=== PATIENT | male | born 1945 | race Caucasian/White ===

== ENCOUNTER 2020-03-12 19:40 | Outpatient (REF) | payer MEDICARE, BC, SELFPAY ==
[2020-03-12 20:22] LABS: HCT 32.2 % (40.0-50.0); HGB 10.4 g/dL (13.5-17.5); MCH 31.5 pg (27.0-33.0); MCHC 32.3 % (32.0-36.0); MCV 97.6 fL (80-95); MPV 10.5 fL (8.0-11.0); RDW 14.5 % (11.8-14.1); RDW-SD 51.8 fL; Reticulocyte 1.7 % (0.5-2.4); WBC 8.91 10^3/uL (4.4-10.8)
[2020-03-12 20:34] LABS: Iron 83 ug/dL (65-175); Total Iron Binding Capacity 282 ug/dL (250-450); Transferrin Sat 29 % (20-55)
[2020-03-12 20:44] LABS: Anion Gap 3.5 mmol/L (3-11); BUN 21 mg/dL (7-18); CO2 34.5 mmol/L (21.0-32.0); CREATININE 1.29 mg/dL (0.70-1.30); Calcium 8.8 mg/dL (8.5-10.1); Chloride 101 mmol/L (98-107); Estimated GFR 54.44 (mL/min/1.73m2); Ferritin 107 ng/mL (26-388); Glucose 126 mg/dL (74-106); Platelet Count 91 10^3/uL (130-400); Potassium 4.4 mmol/L (3.5-5.1); Sodium 139 mmol/L (136-145)
== END 2020-03-12 20:00 ==
LOC: NCHCN 19:40
PROVIDERS: PCP Family Medicine; Visit Provider Internal Medicine
DX: D69.6 Thrombocytopenia, unspecified (principal); E11.9 Type 2 diabetes mellitus without complications; D64.9 Anemia, unspecified; I10 Essential (primary) hypertension; F10.21 Alcohol dependence, in remission
CPT/HCPCS: 80048; 85027; 82728; 83540; 83550; 85045

== ENCOUNTER 2020-07-16 19:33 | Outpatient (REF) | payer MEDICARE, BC, SELFPAY ==
[2020-07-16 20:45] LABS: HGB 10.3 g/dL (13.5-17.5); MCH 30.4 pg (27.0-33.0); MCHC 31.2 % (32.0-36.0); MCV 97.3 fL (80-95); MPV 10.3 fL (8.0-11.0); Platelet Count 92 10^3/uL (130-400); RBC 3.39 10^6/uL (4.36-5.78); RDW 16.3 % (11.8-14.1); RDW-SD 57.4 fL; WBC 11.05 10^3/uL (4.4-10.8)
[2020-07-16 21:00] LABS: ALT 32 U/L (16-63); AST 18 U/L (15-37); Albumin 3.4 g/dL (3.4-5.0); Alkaline Phosphatase 78 U/L (46-116); Anion Gap 4.5 mmol/L (3-11); BUN 20 mg/dL (7-18); Bilirubin, Total 0.4 mg/dL (0.2-1.0); CO2 33.5 mmol/L (21.0-32.0); CREATININE 1.2 mg/dL (0.70-1.30); Chloride 101 mmol/L (98-107); Estimated GFR 59.02 (mL/min/1.73m2); Glucose 137 mg/dL (74-106); Potassium 4.5 mmol/L (3.5-5.1); Sodium 139 mmol/L (136-145); Total Protein 7.1 g/dL (6.4-8.2)
== END 2020-07-16 19:34 | disposition home or self-care (01) ==
LOC: NCHCN 19:33
PROVIDERS: PCP Family Medicine; Visit Provider Family Medicine
DX: R53.83 Other fatigue (principal); J44.9 Chronic obstructive pulmonary disease, unspecified
CPT/HCPCS: 80053; 85027

== ENCOUNTER 2021-03-11 15:47 | Outpatient (REF) | payer MEDICARE, BC, SELFPAY ==
[2021-03-11 15:48] LABS: Absolute Lymphocyte Count 0.83 10^3/uL (1.2-3.4); HCT 29.5 % (40.0-50.0); HGB 9.4 g/dL (13.5-17.5); MCH 32.8 pg (27.0-33.0); MCHC 31.9 % (32.0-36.0); MCV 102.8 fL (80-95); MPV 9.8 fL (8.0-11.0); Nucleated RBC 0 %; RBC 2.87 10^6/uL (4.36-5.78); RDW 14.8 % (11.8-14.1); RDW-SD 56.1 fL; WBC 11.91 10^3/uL (4.4-10.8)
[2021-03-11 16:28] LABS: Absolute Monocyte Count 0.24 10^3/uL (0.1-0.8); Bands % 1
[2021-03-11 16:29] LABS: Diff Comment Manual Differential; Myelocytes % 2; Platelet Count 73 10^3/uL (130-400); RBC Morphology Normal
[2021-03-13 10:00] LABS: IgA 356 mg/dL (85-499); IgE 7 IU/mL (<158); IgG 736 mg/dL (610-1,616); IgM 135 mg/dL (35-242)
== END 2021-03-11 15:48 | disposition home or self-care (01) ==
LOC: LBN 15:47
PROVIDERS: PCP Family Medicine; Visit Provider Student in an Organized Health Care Education/Training Program
DX: J43.2 Centrilobular emphysema
CPT/HCPCS: 82784; 82785; 82787; 85025

== ENCOUNTER 2021-03-12 11:51 | Outpatient (CLI) | payer MEDICARE, BC, SELFPAY ==
[2021-03-12 16:48] LABS: BE 3 mmol/L (-2-3); HCO3 28 mmol/L (22-26); pCO2 48 mmHg (35-45); pH 7.38 (7.35-7.45); pO2 100 mmHg (80-105); sO2 96 % (95-98); tCO2 27 mmol/L (23-27)
[2021-03-12 16:54] LABS: FIO2L 5 L; Site Right Radial
== END 2021-03-12 11:52 | disposition home or self-care (01) ==
LOC: RT 11:57
PROVIDERS: PCP Family Medicine; Visit Provider Student in an Organized Health Care Education/Training Program
DX: J96.11 Chronic respiratory failure with hypoxia (principal); J96.12 Chronic respiratory failure with hypercapnia
CPT/HCPCS: 82805; 36600; 94762

== ENCOUNTER 2021-03-14 11:48 | Outpatient (CLI) | payer MEDICARE, BC, SELFPAY ==
[2021-03-14 14:42] LABS: Lactate 2.1 mmol/L (0.6-1.4)
== END 2021-03-14 11:49 | disposition home or self-care (01) ==
PROVIDERS: PCP Family Medicine; Visit Provider Student in an Organized Health Care Education/Training Program
DX: J96.11 Chronic respiratory failure with hypoxia (principal); J96.12 Chronic respiratory failure with hypercapnia
CPT/HCPCS: 83605

== ENCOUNTER 2021-07-02 18:50 | Outpatient (REF) | payer MEDICARE, BC, SELFPAY ==
[2021-07-02 19:33] LABS: HCT 31.7 % (40.0-50.0); HGB 10.1 g/dL (13.5-17.5); MCHC 31.9 % (32.0-36.0); MCV 103.6 fL (80-95); MPV 9.7 fL (8.0-11.0); RBC 3.06 10^6/uL (4.36-5.78); RDW 16.6 % (11.8-14.1); RDW-SD 62.5 fL; WBC 12.72 10^3/uL (4.4-10.8)
[2021-07-02 19:47] LABS: BUN 34 mg/dL (7-18); CREATININE 1.7 mg/dL (0.70-1.30); Calcium 8.5 mg/dL (8.5-10.1); Chloride 100 mmol/L (98-107); Estimated GFR 39.38 (mL/min/1.73m2); Glucose 160 mg/dL (74-106); Magnesium 1.8 mg/dL (1.8-2.4); Potassium 4.9 mmol/L (3.5-5.1); Sodium 139 mmol/L (136-145)
[2021-07-02 19:56] LABS: Platelet Count 48 10^3/uL (130-400)
== END 2021-07-02 18:51 | disposition home or self-care (01) ==
LOC: NCHCN 18:50
PROVIDERS: PCP Family Medicine; Visit Provider Internal Medicine
DX: R91.8 Other nonspecific abnormal finding of lung field (principal); D46.9 Myelodysplastic syndrome, unspecified; J44.9 Chronic obstructive pulmonary disease, unspecified; R53.1 Weakness
CPT/HCPCS: 80048; 85027; 83735